=== PATIENT | male | born 1995 | race Caucasian/White ===

== ENCOUNTER → 2024-01-09 13:45 | Outpatient (REF) | payer BC, SELFPAY | LOC: RCS 13:45 | PROVIDERS: ATTENDING PHYSICIAN Internal Medicine Interventional Cardiology; FAMILY PHYSICIAN Nurse Practitioner Adult Health | DX: R94.31 Abnormal electrocardiogram [ECG] [EKG] (principal); R07.89 Other chest pain; Z82.49 Family history of ischemic heart disease and other diseases of the circulatory system | CPT/HCPCS: 93017 ==

== ENCOUNTER → 2024-01-17 09:17 | Outpatient (REF) | payer BC, SELFPAY | LOC: HWRCS 09:17 | PROVIDERS: ATTENDING PHYSICIAN Internal Medicine Interventional Cardiology; FAMILY PHYSICIAN Nurse Practitioner Adult Health | DX: R94.31 Abnormal electrocardiogram [ECG] [EKG] (principal); R07.89 Other chest pain; Z82.49 Family history of ischemic heart disease and other diseases of the circulatory system | CPT/HCPCS: 93306 ==

== ENCOUNTER → 2024-04-17 09:46 | Outpatient (REF) | payer BC, SELFPAY | LOC: DHSLP 09:46 | PROVIDERS: ATTENDING PHYSICIAN Internal Medicine Critical Care Medicine; FAMILY PHYSICIAN Nurse Practitioner Adult Health | DX: G47.00 Insomnia, unspecified (principal); R06.83 Snoring | CPT/HCPCS: 95800 ==